=== PATIENT | female | born 1955 | race African-American/Black ===

== ENCOUNTER 2018-07-11 05:01 | Day surgery (SDC) | payer BC ==
[2018-07-09 17:56] VITALS: BMI 25.7
[2018-07-11] MEDS ORDERED: BENZOIN TINCTURE SWABSTICK TP ONE (07:36)
[2018-07-11] MEDS ORDERED: MICROFIBRILLAR COLLAGEN 1 GM EACH ONE (07:36)
[2018-07-11] MEDS ORDERED: LIDOCAINE 1%/EPI 1:100000 (20 ML MULTI DOSE VIAL) ONE (07:36)
[2018-07-11] MEDS ORDERED: MIDAZOLAM HCL 2 MG/2 ML SINGLE DOSE VIAL ONE (09:12)
[2018-07-11] MEDS ORDERED: LIDOCAINE HCL/PF 2% SDV 5ML VIAL ONE (09:18)
[2018-07-11] MEDS ORDERED: SUCCINYLCHOLINE CHLORIDE 200 MG/10 ML VIAL ONE (09:19)
[2018-07-11] MEDS ORDERED: PROPOFOL 20 ML ONE ×3 (09:19→10:41)
[2018-07-11] MEDS ORDERED: fentaNYL CITRATE 250 MCG/5 ML VIAL ONE (09:19)
[2018-07-11] MEDS ORDERED: CLINDAMYCIN PHOSPHATE 600 MG/4 ML VIAL IVPB ONE (09:33)
[2018-07-11] MEDS ORDERED: LIDOCAINE 1%/EPI 1:100000 (50 ML MULTI DOSE VIAL) INF ONE (09:49)
[2018-07-11] MEDS ORDERED: ePHEDrine SULFATE 50 MG/1 ML AMPULE ONE (09:53)
[2018-07-11] MEDS ORDERED: ONDANSETRON 4 MG/2 ML VIAL IVPUSH PRN (10:18)
[2018-07-11] MEDS ORDERED: LACTATED RINGERS SOLUTION 1,000 ML IV SCH ×2 (10:30→12:00)
[2018-07-11] MEDS ORDERED: CALCIUM CARBONATE 650 MG TABLET PO SCH (12:00)
[2018-07-11] MEDS ORDERED: CALCITRIOL 0.25 MCG CAPSULE (FP) PO SCH (12:00)
--- NOTE | 2018-07-11 12:41 | OP ---
DATE OF OPERATION: 07/11/2018 SURGICAL ATTENDING: Kallie Syed MD [employer] MANAGER: DAGMAR Givens PREOPERATIVE DIAGNOSIS: Thyroid goiter. POSTOPERATIVE DIAGNOSIS: Thyroid goiter. ANESTHESIA: General endotracheal. PROCEDURE: Total thyroidectomy and neck ultrasound. DESCRIPTION OF PROCEDURE: The patient was taken into the operating room and placed in a supine position. Endotracheally intubated. Neck ultrasound was performed showing bilateral enlarged thyroid glands. The neck was then prepped and draped in the usual sterile fashion. Local anesthesia was administered, and a 7-cm horizontal incision was made in the anterior mid neck and carried down through the subcutaneous tissues and platysma. Subplatysmal flaps were raised superiorly and inferiorly, and flap hooks were placed for exposure. The median raphae was incised, and the strap muscles were elevated bilaterally. Dissection began on the right side where the recurrent laryngeal nerve and superior laryngeal nerves were identified and preserved. The parathyroid glands were also identified and preserved. The superior, posterior, and inferior attachments of the thyroid lobe were transected, and the thyroid was shaved off of the trachea. The isthmus was transected, and in this way the right thyroid lobe was removed. It was checked for parathyroid tissue. None was found. It was sent to Pathology for evaluation. Attention was then turned toward the left side where the recurrent laryngeal nerve and superior laryngeal nerves were identified and preserved. The two parathyroid glands on the left side were also identified and preserved. The superior, posterior, and inferior attachments of the left thyroid lobe were transected, and in this way the left thyroid lobe was removed. It was sent to Pathology after checking for parathyroid tissue, and none was found. Hemostasis was achieved with electrocautery and Avitene. The wound was then closed in 3 layers. Sterile dressings were placed. The patient was then awakened, extubated, and taken to recovery in stable condition. Dr. Syed, the attending surgeon, was present throughout the entire procedure. KALLIE SYED M.D. [id number]
[2018-07-11] MEDS ORDERED: CALCITRIOL 0.25 MCG CAPSULE (FP) PO ONE (14:10)
[2018-07-11] MEDS ORDERED: CALCIUM CARBONATE 650 MG TABLET PO ONE (14:10)
[2018-07-11 14:36] VITALS: BP 133/78; PULSE 80; TEMP 97.7
[2018-07-12] MEDS ORDERED: amLODIPine BESYLATE 10 MG TABLET (FP) PO SCH (10:00)
--- NOTE | 2018-07-14 14:00 | PATH ---
Surgical Pathology Report Patient Name: PRIETO LOVING [facility]. Rec. #: [id number] /Age/Gender: 1955 (Age: 62) / F Account: [id number] Location: [facility] Taken: 07/11/2018 Received: 07/11/2018 Reported: 07/14/2018 Physicians: Ilan Johnston M.D. Specimen(s) Received A: RIGHT THYROID, TOTAL LOBE B: LEFT THYROID, TOTAL LOBE Clinical History Thyroid goiter Final Diagnosis A. THYROID, RIGHT LOBE, THYROIDECTOMY: BENIGN THYROID WITH MULTINODULAR HYPERPLASIA, RARE LYMPHOID AGGREGATES, CYSTIC AND FOCAL REACTIVE CHANGES. B. THYROID, LEFT LOBE, THYROIDECTOMY: BENIGN THYROID WITH MULTINODULAR HYPERPLASIA, FEW LYMPHOID AGGREGATES, CYSTIC AND FOCAL REACTIVE CHANGES. Comment: The presence of lymphocytes/lymphoid aggregates raises the possibility of Chronic lymphocytic thyroiditis. Suggest clinical/radiologic, and serologic correlation. Electronically Signed Isadora Hong M.D. Gross Description A. Received in formalin labeled "right thyroid lobe," is an 84 g, 8.5 x 5.3 x 4.6 cm thyroid lobe. The outer surface is johnson-red and intact with bulging cystic appearing nodules. Sectioning reveals heterogeneous, cystic, focally hemorrhagic colloid nodules abutting the outer capsule and measuring up to 3.5 cm in greatest dimension. No remaining normal thyroid parenchyma is identified. Computer Equipment [employer] sections are sequentially submitted in 10 cassettes. B. Received in formalin labeled "left thyroid lobe," is a 31 g, 4.8 x 4.4 x 3.3 cm thyroid lobe. The outer surface is johnson-red and intact. Sectioning reveals heterogeneous, focally hemorrhagic colloid nodules measuring up to 3.3 cm in greatest dimension. The remaining thyroid parenchyma is johnson-pink. Computer Equipment Repairer sections are sequentially submitted in 8 cassettes. DL/07/11/2018 saudi07/11/2018
== END 2018-07-11 14:10 | disposition home or self-care (01) ==
LOC: JASU-SURG 05:01 → EDSTATUS 10:00 → JASU-SURG 14:10
PROVIDERS: ATTEND Surgery
PROC: 0GBJ0ZZ Excision of Thyroid Gland Isthmus, Open Approach (ICD-10-PCS; 2018-07-11)
PROC: 0GTK0ZZ Resection of Thyroid Gland, Open Approach (ICD-10-PCS; principal; 2018-07-11 09:00)
DX: E04.9 Nontoxic goiter, unspecified (principal)
CPT/HCPCS: 71046-TC-FY; 88307-TC; 94760